=== PATIENT | female | born 1980 | race African-American/Black ===

== ENCOUNTER 2018-09-21 14:32 | Emergency (ER) | payer OTHER ==
[2018-09-21] MEDS ORDERED: ONDANSETRON HCL INJ/PF 4 MG/2 ML SDV ONE (14:47)
[2018-09-21 15:01] LABS: ABSOLUTE EOSINOPHILS # (AUTO) 0.1 10^3/uL (0.0-0.6); ABSOLUTE LYMPHOCYTES (AUTO) 1.9 10^3/uL (0.5-4.7); ABSOLUTE MONOCYTES (AUTO) 0.6 10^3/uL (0.1-1.4); ABSOLUTE NEUT (AUTO) 6.6 10^3/uL (1.7-8.2); BASOPHILS % (AUTO) 0.5 % (0-2); EOSINOPHILS % (AUTO) 0.7 % (0-6); HEMATOCRIT 34.8 % (36.0-47.0); HEMOGLOBIN 11.5 g/dL (12.0-15.5); LYMPHOCYTES % (AUTO) 20.7 % (13-45); MEAN CORPUSCULAR HEMOGLOBIN 25.3 pg (27.0-33.4); MEAN CORPUSCULAR HGB CONC 33.1 g/dL (32.0-36.0); MEAN CORPUSCULAR VOLUME 77 fl (80-97); MONOCYTES % (AUTO) 6.2 % (3-13); PLATELET COUNT 362 10^3/uL (150-450); RED BLOOD COUNT 4.54 10^6/uL (3.72-5.28); RED CELL DISTRIBUTION WIDTH 14.6 % (11.5-14.0); SEGMENTED NEUTROPHILS % (AUTO) 71.9 % (42-78); TOTAL CELLS COUNTED % (AUTO) 100 %; WHITE BLOOD COUNT 9.1 10^3/uL (4.0-10.5)
[2018-09-21] MEDS ORDERED: NORMAL SALINE 1000 ML 1,000 ML IV PRN (15:02)
[2018-09-21 15:19] LABS: ALANINE AMINOTRANSFERASE 20 U/L (9-52); ALKALINE PHOSPHATASE 75 U/L (38-126); ANION GAP 13 (5-19); ASPARTATE AMINO TRANSFERASE 23 U/L (14-36); BILIRUBIN,DIRECT 0.2 mg/dL (0.0-0.4); BILIRUBIN,TOTAL 0.3 mg/dL (0.2-1.3); BLOOD UREA NITROGEN 8 mg/dL (7-20); CALCIUM 9.3 mg/dL (8.4-10.2); CARBON DIOXIDE 21 mmol/L (22-30); CHLORIDE 106 mmol/L (98-107); GLUCOSE 141 mg/dL (75-110); LIPASE 49.5 U/L (23-300); POTASSIUM 3.7 mmol/L (3.6-5.0); SODIUM 139.6 mmol/L (137-145); TOTAL PROTEIN 6.7 g/dL (6.3-8.2)
[2018-09-21] MEDS ORDERED: ONDANSETRON HCL INJ/PF 4 MG/2 ML SDV IV ONE ×2 (16:47→20:08)
[2018-09-21] MEDS ORDERED: HYDROMORPHONE HCL INJ/PF 2 MG/ML AMPULE IV ONE (16:48)
[2018-09-21] MEDS ORDERED: MECLIZINE HCL 25 MG TABLET PO ONE ×2 (16:48→20:08)
[2018-09-21] MEDS ORDERED: NORMAL SALINE 1000 ML 1,000 ML IV ONE (16:48)
[2018-09-21 18:36] LABS: APPEARANCE,URINE SLIGHTLY-CLOUDY; BILIRUBIN,URINE NEGATIVE (NEGATIVE); COLOR,URINE YELLOW; GLUCOSE, URINE NEGATIVE (NEGATIVE); KETONES,URINE NEGATIVE (NEGATIVE); LEUKOCYTE ESTERASE,URINE SMALL (NEGATIVE); NITRITE,URINE NEGATIVE (NEGATIVE); PROTEIN,URINE NEGATIVE (NEGATIVE); URINE SPECIFIC GRAVITY 1.043; UROBILINOGEN,URINE NEGATIVE mg/dL (<2.0)
--- NOTE | 2018-09-21 18:38 | RADIOLOGY REPORT (SQ) ---
EXAM DESCRIPTION: CT ABD/PELVIS WITH IV ONLY COMPLETED DATE/TIME: 09/21/2018 6:17 pm REASON FOR STUDY: N/V/D, periumbilical abdominal pain COMPARISON: None. TECHNIQUE: CT scan of the abdomen and pelvis performed using helical scanning technique with dynamic intravenous contrast injection. No oral contrast. Images reviewed with lung, soft tissue, and bone windows. Reconstructed coronal and sagittal MPR images reviewed. Delayed images for evaluation of the urinary system also acquired. All images stored on PACS. All CT scanners at this facility use dose modulation, iterative reconstruction, and/or weight based d osing when appropriate to reduce radiation dose to as low as reasonably achievable (ALARA). [facility]: Dose Right [facility]: CareDose [facility]: Dose Right [facility]: Teradose 4D [facility]: FND CONTRAST TYPE AND DOSE: contrast/concentration: Isovue 350.00 mg/ml; Total Contrast Delivered: 100.0 ml; Total Saline Delivered: 59.1 ml RENAL FUNCTION: None required. The patient is less than 50 years old. RADIATION DOSE: CT Rad equipment meets quality standard of care and radiation dose reduction techniq ues were employed. CTDIvol: 21.1 - 21.1 mGy. DLP: 2236 mGy-cm.. LIMITATIONS: None. FINDINGS: LOWER CHEST: No significant findings. No nodules or infiltrates. LIVER: Normal size. No masses. No dilated ducts. SPLEEN: Normal size. No focal lesions. PANCREAS: No masses. No significant calcifications. No adjacent inflammation or peripancreatic fluid collections. Pancreatic duct not dilated. GALLBLADDER: No identified stones by CT criteria. No inflammatory changes to suggest cholecystitis. ADRENAL GLANDS: No significant masses or asymmetry. RIGHT KIDNEY AND URETER: No solid masses. No significant calcifications. No hydronephrosis or hyd roureter. LEFT KIDNEY AND URETER: No solid masses. No significant calcifications. No hydronephrosis or hydr oureter. AORTA AND VESSELS: No aneurysm. No dissection. Renal arteries, SMA, celiac without stenosis. RETROPERITONEUM: No retroperitoneal adenopathy, hemorrhage or masses. BOWEL AND PERITONEAL CAVITY: No masses or inflammatory changes. No free fluid or peritoneal masses. Occasional colonic diverticula. APPENDIX: Normal. PELVIS: No mass. No free fluid. Normal bladder. ABDOMINAL WALL: No masses. No hernias. BONES: No significant or acute findings. OTHER: No other significant finding. IMPRESSION: No acute CT findings to explain abdominal pain. TECHNICAL DOCUMENTATION: JOB ID: [id number] Quality ID # [id number]: Final reports with documentation of one or more dose reduction techniques (e.g., Au tomated exposure control, adjustment of the mA and/or kV according to patient size, use of iterative reconstruction technique) 2010 [employer]- All Rights Reserved Reading location - IP/workstation name: [email or web address]
[2018-09-21] MEDS ORDERED: DIAZEPAM INJ 10 MG/2 ML DISP.SYRIN IV ONE (20:08)
[2018-09-21] MEDS ORDERED: PROMETHAZINE HCL INJ 25 MG/1 ML VIAL IM ONE (21:24)
[2018-09-21 22:14] VITALS: BP 158/85
--- NOTE | 2018-09-21 22:32 | ER Document Report ---
Entered by NOY PALACIO SCRIBE 09/21/18 1712 Acting as scribe for:LEANNA QUINONES DO ED General - General Chief Complaint: Nausea/Vomiting Stated Complaint: VOMITING Time Seen by Provider: 09/21/18 15:53 Mode of Arrival: Ambulatory Information source: Patient Notes: Patient is a 38 year old female presenting to the emergency department complaining of multiple symptoms including nausea, vomiting, diarrhea and dizziness. Patient states she has had abdominal pain for 2 weeks which is described as a constant dull sensation that becomes sharp after eating any food with associated diarrhea and it is the worst with fatty foods and fried foods. She states today, after eating [place] food, she developed dizziness, described as the room spinning, while driving. She states she took an Ativan tablet after initially attributing her dizziness to having anxiety while driving. She states the Ativan did not help her dizziness and she proceeded to call EMS and shortly began to vomit after their arrival. She also complains of an intermittent frontal headache for 1 week and reports a past history of migraines. She states her headache is typically relieved with medicine. She denies any fevers, dysuria, burning with urination, hematuria or increase in vaginal discharge. Mother is concerned that she may have a problem with her gallbladder as this is the same way the mother's gallbladder problems presented. TRAVEL OUTSIDE OF THE [place] IN LAST 30 DAYS: No - Related Data Allergies/Adverse Reactions: No Known Allergies Allergy (Unverified 09/21/18 14:53) Past Medical History - General Information source: Patient - Social History Smoking Status: Never Smoker Chew tobacco use (# tins/day): No Frequency of alcohol use: Occasional Drug Abuse: None Lives with: Spouse/Significant other Family History: Reviewed & Not Pertinent Patient has suicidal ideation: No Patient has homicidal ideation: No Past Surgical History: Reports: Hx Breast Surgery - Breast Reduction Review of Systems - Review of Systems Constitutional: No symptoms reported. denies: Fever EENT: No symptoms reported Cardiovascular: See HPI, Dizziness Respiratory: No symptoms reported Gastrointestinal: See HPI, Abdominal pain, Diarrhea, Nausea, Vomiting Genitourinary: No symptoms reported Female Genitourinary: No symptoms reported Musculoskeletal: No symptoms reported Skin: No symptoms reported Hematologic/Lymphatic: No symptoms reported Neurological/Psychological: No symptoms reported -: Yes All other systems reviewed and negative Physical Exam - Vital signs Vitals: Temp Resp BP Pulse Ox 98 F 18 141/82 H 100 09/21/18 14:51 09/21/18 14:51 09/21/18 14:51 09/21/18 14:51 Interpretation: Hypertensive - Notes Notes: GENERAL: Alert, interacts well. No acute distress. Obese HEAD: Normocephalic, atraumatic. EYES: Pupils equal, round, and reactive to light. Extraocular movements intact. Positive [place] Hall[place] testing to the right, left lateral gaze nystagmus, negative testing to the left. ENT: Oral mucosa moist, tongue midline. NECK: Full range of motion. Supple. Trachea midline. LUNGS: Clear to auscultation bilaterally, no wheezes, rales, or rhonchi. No respiratory distress. HEART: Regular rate and rhythm. No murmurs, gallops, or rubs. ABDOMEN: Soft, non-tender. Non-distended. Bowel sounds present in all 4 quadrants. No guarding, rigidity, or rebound. EXTREMITIES: Moves all 4 extremities spontaneously. No edema, radial and dorsalis pedis pulses 2/4 bilaterally. No cyanosis. NEUROLOGICAL: Alert and oriented x3. Normal speech. PSYCH: Normal affect, normal mood. SKIN: Warm, dry, normal turgor. No rashes or lesions noted. Course - Re-evaluation Re-evalutation: 09/21/18 22:16 CBC shows mild anemia with hemoglobin 11.5 otherwise unremarkable, CMP shows mild dehydration with a CO2 of 21, elevated glucose at 141, will discuss the possibility of diabetes with the patient. Lipase normal at 49.5, total and direct bilirubin normal, LFTs normal, test negative, urinalysis shows small leukocyte esterase but 13 schemas epithelial cells so this is likely contaminated. Patient's abdominal pain is not reproducible and most of her abdominal pain was located in her periumbilical region rather than the right upper quadrant. Given that this is been going on for 2 weeks I did decide to do a CT scan of the abdomen and pelvis rather than ultrasound of the gallbladder. CT scan of the abdomen and pelvis does not reveal any stones in the gallbladder or inflammatory changes to suggest cholecystitis, no abnormalities with the intestines. No acute CT scan findings. Physical examination is consistent with BPPV causing her dizziness. Patient treated with Antivert and a little bit of Valium for the dizziness. Patient's abdominal pain has resolved. Patient's nausea is being treated with Zofran and a little bit of Phenergan. Patient is encouraged to follow-up with primary care physician as an outpatient for HIDA scan. No evidence of acute biliary pathology at this time. No need for surgical consult at this time. Patient will be discharged home with Antivert and antinausea medication. Patient will return for fevers, worsening pain or intractable vomiting. Counseled on low-fat diet. Dizziness has almost completely resolved at this time, able to walk to and from the bathroom without difficulty. 09/21/18 22:31 Patient feeling better, after Phenergan shot no further vomiting. Discharged h ome with Zofran and Phenergan. - Vital Signs Vital signs: Temp Pulse Resp BP Pulse Ox 98 F 13 158/85 H 98 09/21/18 14:51 09/21/18 22:00 09/21/18 21:01 09/21/18 22:00 - Laboratory Result Diagrams: 09/21/18 14:45 09/21/18 14:45 Laboratory results interpreted by me: 09/21/18 09/21/18 09/21/18 14:45 14:45 18:15 Hgb 11.5 L Hct 34.8 L MCV 77 L MCH 25.3 L RDW 14.6 H Carbon Dioxide 21 L Glucose 141 H Ur Leukocyte Esterase SMALL H Discharge - Discharge Clinical Impression: Vertigo, Benign paroxysmal positional vertigo of right ear, Nausea vomiting and diarrhea, Periumbilical abdominal pain Condition: Stable Disposition: HOME, SELF-CARE Additional Instructions: Vertigo You have experienced an episode of vertigo -- a whirling dizziness which may be accompanied by nausea and vomiting or staggering. Vertigo is often caused by an irritation of the inner ear, in which case it is called labyrinthitis. It can also be a symptom of a degenerating inner ear, nerve damage, or brain injury. Your physician has evaluated you to determine whether any further testing is necessary. Vertigo is often treated with dramamine or meclizine. These medications are helpful, but stronger medication may be needed if you are vomiting. Rest in bed. You should not drive or operate machinery until completely better. It may take one to three weeks for recovery. If there are new symptoms, such as decreased hearing or vision, severe headache, weakness or faintness, or confusion, call the physician. Gallbladder Disease I suspect you will have a poorly functioning gallbladder however your test today did not reveal any signs of infection or obstruction. You will need to follow-up with your primary care physician for a HIDA scan. The gallbladder is a pouch under the liver which stores bile. Certain foods -- fats in particular -- may provoke attacks. If the HIDA scan reveals that her gallbladder is not functioning they will likely do surgery to remove it. Hospitalization is not necessary. Take clear liquids only until you are painfree. After that, you should stay on a low-fat diet, with frequent SMALL meals. Call the doctor or return at once if you develop severe pain, repeated vomiting, fever, or jaundice (a yellow color in the skin and whites of the eyes). Low-Fat Diet The physician has recommended a low-fat diet. This diet is often used for gallbladder or pancreas problems. Your meals should be high-carbohydrate (potato, apples, noodles, breads, vegetables). Eat fish or skinless chicken (boiled or baked rather than fried) for protein. Beans and peas are good sources of fat-free protein. Soups are usually very low-fat. Don't eat anything fried. Avoid red meats. Avoid most dairy products. Skim milk and non-fat yogurt are OK. Most popular cheeses are very high-fat. Don't add butter or sauces -- use lemon or pepper instead. If you like salads, use one of the new "non-fat" dressings. "Fast Food" is "fat food." There is virtually nothing from a typical fast- food restaurant that you can eat. Fish patties and chicken nuggets are almost always deep-fat fried. "Special Sauces" are mostly fat. I have prescribed meclizine for your dizziness and provided you with exercises you can do to help treat your dizziness without medication. I have also prescribed Phenergan and Zofran to help with your nausea. Prescriptions: Ondansetron [Zofran Odt 4 mg Tablet] 1 - 2 tab PO Q4HP PRN #14 tab.rapdis PRN Reason: Promethazine HCl [Phenergan 25 mg Tablet] 25 mg PO Q4HP PRN #20 tablet PRN Reason: Meclizine HCl [Antivert 25 mg Tablet] 25 mg PO QIDP PRN #21 tablet PRN Reason: Forms: Return to Work I personally performed the services described in the documentation, reviewed and edited the documentation which was dictated to the scribe in my presence, and it accurately records my words and actions.
== END 2018-09-21 23:03 | disposition home or self-care (01) ==
LOC: ER 14:32
DX: R11.2 Nausea with vomiting, unspecified (principal); H81.11 Benign paroxysmal vertigo, right ear; R10.33 Periumbilical pain; R19.7 Diarrhea, unspecified; R51 Headache; D64.9 Anemia, unspecified; E86.0 Dehydration; R73.9 Hyperglycemia, unspecified; Z86.69 Personal history of other diseases of the nervous system and sense organs
CPT/HCPCS: 96376; 99284; 96372; 96361; 96374; 96375; 36415; 83690; 84703; 85025; 81025; 80053; 81001; 74177; J3360; J1170; J2550; J2405; J7030